=== PATIENT | female | born 1960 | race Caucasian/White ===

== ENCOUNTER → 2017-05-09 | Outpatient (CLI) | payer OTHER | LOC: BMCIMAGING 10:19 | PROVIDERS: ATTEND Physician Assistant | DX: Z12.39 Encounter for other screening for malignant neoplasm of breast (principal); Z13.820 Encounter for screening for osteoporosis; N64.4 Mastodynia | CPT/HCPCS: G0204 ==

== ENCOUNTER → 2018-07-19 | Outpatient (CLI) | payer OTHER | LOC: BMCIMAGING 11:54 | PROVIDERS: ATTEND Physician Assistant | DX: M21.611 Bunion of right foot (principal); M21.612 Bunion of left foot; M20.11 Hallux valgus (acquired), right foot; M20.12 Hallux valgus (acquired), left foot; M77.31 Calcaneal spur, right foot; M77.32 Calcaneal spur, left foot; M76.62 Achilles tendinitis, left leg ==